=== PATIENT | female | born 1950 | race Caucasian/White ===

== ENCOUNTER 2019-01-04 08:34 | Day surgery (SDC) | payer MEDICARE, BC ==
[2019-01-04] VITALS (8 sets, daily range): BP systolic 150–186; BP diastolic 72–87
[~2019-01-04] VITALS: Ht 154.9 cm; Wt 76.2 kg
[2019-01-04] MEDS ORDERED: CHOL10002 PO (09:57)
[2019-01-04] MEDS ORDERED: LEVO137T2 PO (09:57)
[2019-01-04] MEDS ORDERED: LOSA25TA96 PO (09:57)
[2019-01-04] MEDS ORDERED: CITA40TA22 PO (09:57)
[2019-01-04] MEDS ORDERED: PANT-47 PO (09:57)
[2019-01-04] MEDS ORDERED: LIDOcaine 1% 30ml preserv. free vial IJ STA (10:28)
== END 2019-01-04 12:00 | disposition home or self-care (01) ==
LOC: SSTAY O 08:34
PROVIDERS: ATTEND Radiology Vascular & Interventional Radiology
DX: R59.0 Localized enlarged lymph nodes (principal); E03.9 Hypothyroidism, unspecified; I10 Essential (primary) hypertension; Z79.899 Other long term (current) drug therapy; Z90.710 Acquired absence of both cervix and uterus; Z98.49 Cataract extraction status, unspecified eye; Z85.850 Personal history of malignant neoplasm of thyroid; Z88.6 Allergy status to analgesic agent; F17.200 Nicotine dependence, unspecified, uncomplicated
CPT/HCPCS: 10005; 88184; 88185; J3490; 60100; 76942; 88173; 88305

== ENCOUNTER 2019-11-14 08:01 | Emergency (ER) | payer MEDICARE, BC ==
[~2019-11-14] VITALS: Ht 152.4 cm; Wt 80.2 kg
[~2019-11-14 08:01] MED LIST: CHOL10002 PO; CITA40TA22 PO; LEVO137T2 PO; LOSA25TA96 PO; PANT-47 PO
[2019-11-14] MEDS ORDERED: ondansetron 4mg rapidly disintigrating tab PO ONE (08:45)
[2019-11-14] MEDS ORDERED: morphine 4 MG/ML inj SYRINge IM ONE (08:45)
[2019-11-14] MEDS ORDERED: ONDA4TAB6 PO (09:48)
[2019-11-14] MEDS ORDERED: MORP15TA PO (09:48)
[2019-11-14 10:52] VITALS: BP 150/80
[2019-11-17] MEDS ORDERED: [UNRECOGNIZED DRUG - CODE] PO (16:34)
== END 2019-11-14 10:58 | disposition home or self-care (01) ==
LOC: ER 08:02
DX: S42.292A Other displaced fracture of upper end of left humerus, initial encounter for closed fracture (principal); R51 Headache; Z88.5 Allergy status to narcotic agent; Z79.899 Other long term (current) drug therapy; W18.49XA Other slipping, tripping and stumbling without falling, initial encounter; Y93.89 Activity, other specified; Y92.89 Other specified places as the place of occurrence of the external cause; Y99.9 Unspecified external cause status
CPT/HCPCS: 70450; 73060; 96372; 99284; J2270

== ENCOUNTER 2019-11-18 09:59 | Day surgery (SDC) | payer MEDICARE, BC ==
[~2019-11-18] VITALS: Ht 157.5 cm; Wt 75.8 kg
[2019-11-18] VITALS (8 sets, daily range): BP systolic 118–158; BP diastolic 73–87
[~2019-11-18 09:59] MED LIST changes: -CHOL10002 PO; +MESSAGE TO NURSING PO ONE; +[UNRECOGNIZED DRUG - CODE] PO; +cefazolin/dext.iso 2gm/100ml 100 ML IV ONE; +famotidine 10mg tablet PO ONE; +ringers solution, lacted 1,000 ML IV SCH; +vancomycin inj 1,500 MG in normal saline 300ml IV soln IV ONE
[2019-11-18] MEDS ORDERED: METO1TAB25 PO (10:51)
[2019-11-18] MEDS ORDERED: meperidine/PF 25mg/ml syringe ONE (11:45)
[2019-11-18 11:52] LABS: BASOPHILS # (AUTO) 0.1 X10'3 (0-0.2); EOSINOPHILS # (AUTO) 0.2 X10'3 (0-0.9); EOSINOPHILS % (AUTO) 2.6 % (0-6); LYMPHOCYTES # (AUTO) 1.7 X10'3 (1.1-4.8); LYMPHOCYTES % (AUTO) 19.2 % (21-51); MEAN CORPUSCULAR HEMOGLOBIN 30.8 PG (27.0-31.0); MEAN CORPUSCULAR HGB CONC 34.7 g/dL (33.0-36.5); MEAN CORPUSCULAR VOLUME 88.8 FL (78-98); MEAN PLATELET VOLUME 8.7 FL (7.4-10.4); MONOCYTES # (AUTO) 0.7 X10'3 (0-0.9); NEUTROPHILS # (AUTO) 6.2 X10'3 (1.8-7.7); NEUTROPHILS % (AUTO) 69.2 % (42-75); PRE OP HEMATOCRIT 38.2 % (35.0-45.0); PRE OP HEMOGLOBIN 13.2 g/dL (12.0-16.0); PRE OP PLATELET COUNT 253 X10'3 (140-440); RED CELL DISTRIBUTION WIDTH 13.5 % (11.5-14.5)
[2019-11-18 12:04] LABS: PRE OP PROTIME 10.8 SECONDS (9.0-12.0)
[2019-11-18 12:08] LABS: ALBUMIN 3.1 G/DL (3.4-5.0); ALBUMIN/GLOBULIN RATIO 0.8 (1.1-1.5); ALKALINE PHOSPHATASE 72 IU/L (46-116); BLOOD UREA NITROGEN 6 MG/DL (7-18); BUN/CREATININE RATIO 9.1 (6.6-38.0); CALCIUM 8.6 MG/DL (8.5-10.1); CHLORIDE 106 MMOL/L (99-107); CREATININE 0.66 MG/DL (0.40-0.90); PRE OP ALT 19 U/L (30-65); PRE OP ANION GAP 9 (8-16); PRE OP AST 18 U/L (10-37); PRE OP BILIRUB, TOTAL 0.8 MG/DL (0.0-1.0); PRE OP GLUCOSE 86 MG/DL (70-104); PRE OP SODIUM 140 MMOL/L (135-145); TOTAL CARBON DIOXIDE 24.6 MMOL/L (24-32); TOTAL PROTEIN 6.8 G/DL (6.4-8.2); eGFR 89 ML/MIN
[2019-11-18] MEDS ORDERED: BUPIVAcaine/PF 2.5 mg/ml (0.25%) 30ml vial ONE (12:08)
[2019-11-18] MEDS ORDERED: vancomycin 1,000mg inj ONE (12:08)
[2019-11-18] MEDS ORDERED: ondansetron/PF 4mg/2ml inj ONE (12:12)
[2019-11-18] MEDS ORDERED: sevoflurane 250ml liquid IH ONE (12:12)
[2019-11-18] MEDS ORDERED: fentaNYL/PF 50MCG/1 ML 2ML syringe ONE (12:17)
[2019-11-18] MEDS ORDERED: midazolam 2 mg/2 ml injection ONE (12:18)
[2019-11-18] MEDS ORDERED: propofol inj 20 ML IV ONE (12:20)
[2019-11-18 12:21] LABS: PRE OP POTASSIUM 3.2 MMOL/L (3.4-5.1)
[2019-11-18] MEDS ORDERED: ROPIVAcaine 0.5% (5mg/ml) 30ml vial ONE (12:21)
[2019-11-18] MEDS ORDERED: ePHEDrine 50MG/ML INJ. ONE (13:01)
[2019-11-18] MEDS ORDERED: morphine 4 MG/ML inj SYRINge IV PRN ×2 (13:20)
[2019-11-18] MEDS ORDERED: proCHLORperazine 10 MG/2 ml inj IV PRN (13:20)
[2019-11-18] MEDS ORDERED: ringers solution, lacted 1,000 ML IV SCH (13:20)
[2019-11-18] MEDS ORDERED: meperidine/PF 25mg/ml syringe IV PRN ×3 (13:20)
[2019-11-18] MEDS ORDERED: ondansetron/PF 4mg/2ml inj IV PRN (13:20)
[2019-11-18] MEDS ORDERED: dexamethasone sod phosphate 4mg/ml inj. ONE (13:39)
--- NOTE | 2019-11-18 14:14 | NUR ---
Received from OR via , accompanied by Anesthesiologist DR FITZGERALD and report given by Anesthesiolgist. AWAKENS TO VOICE. VITALS STABLE. DRESSING DI. ISAI PAIN. FINGERS WARM AND PINK. LUE IN SIMPLE SLING.
--- NOTE | 2019-11-18 15:34 | NUR ---
AWAKE AND ORIENTED. VITALS STABLE. DRESSING DI. ISAI PAIN. HOME WITH HER DAUGHTER AT THIS TIME.
== END 2019-11-18 15:34 | disposition home or self-care (01) ==
LOC: PRE-OP 09:59
PROVIDERS: ATTEND Orthopaedic Surgery
DX: S42.222A 2-part displaced fracture of surgical neck of left humerus, initial encounter for closed fracture (principal); I10 Essential (primary) hypertension; Z98.890 Other specified postprocedural states; Z88.5 Allergy status to narcotic agent; Z79.899 Other long term (current) drug therapy; Z79.82 Long term (current) use of aspirin; Z79.2 Long term (current) use of antibiotics; Z87.891 Personal history of nicotine dependence; Z72.89 Other problems related to lifestyle; Z82.3 Family history of stroke; Z80.9 Family history of malignant neoplasm, unspecified; W19.XXXA Unspecified fall, initial encounter; Y93.89 Activity, other specified; Y92.89 Other specified places as the place of occurrence of the external cause; Y99.8 Other external cause status; G89.18 Other acute postprocedural pain
CPT/HCPCS: 23615; 36415; 64415; 71045; 73030; 76000; 80053; 85025; 85610; 85730; 86885; 86900; 86901; 93005; C1713; J1100; J2175; J2250; J2405; J2704; J3010; J3370; J3490; J7120; A4618; A7000; J2795

== ENCOUNTER 2020-02-11 17:06 | Emergency (ER) | payer MEDICARE, BC ==
[~2020-02-11] VITALS: Ht 157.5 cm; Wt 72.7 kg
[~2020-02-11 17:06] MED LIST changes: -MESSAGE TO NURSING PO ONE; +METO1TAB25 PO; -cefazolin/dext.iso 2gm/100ml 100 ML IV ONE; -famotidine 10mg tablet PO ONE; -ringers solution, lacted 1,000 ML IV SCH; -vancomycin inj 1,500 MG in normal saline 300ml IV soln IV ONE
[2020-02-11] MEDS ORDERED: normal saline 1000ML IV soln IV ONE (17:50)
[2020-02-11 18:24] LABS: BASOPHILS # (AUTO) 0.1 X10'3 (0-0.2); BASOPHILS % (AUTO) 0.5 % (0-1); EOSINOPHILS # (AUTO) 0.4 X10'3 (0-0.9); EOSINOPHILS % (AUTO) 3.5 % (0-6); HEMATOCRIT 41.3 % (35.0-45.0); HEMOGLOBIN 13.5 g/dl (12.0-16.0); LYMPHOCYTES # (AUTO) 1.9 X10'3 (1.1-4.8); LYMPHOCYTES % (AUTO) 16.3 % (21-51); MEAN CORPUSCULAR HEMOGLOBIN 28.3 PG (27.0-31.0); MEAN CORPUSCULAR HGB CONC 32.6 g/dL (33.0-36.5); MEAN CORPUSCULAR VOLUME 86.8 FL (78-98); MEAN PLATELET VOLUME 8.5 FL (7.4-10.4); MONOCYTES # (AUTO) 0.6 X10'3 (0-0.9); MONOCYTES % (AUTO) 5.6 % (2-12); NEUTROPHILS # (AUTO) 8.5 X10'3 (1.8-7.7); NEUTROPHILS % (AUTO) 74.1 % (42-75); PLATELET COUNT 270 X10'3 (140-440); RED BLOOD COUNT 4.76 X10'6 (4.20-5.60); RED CELL DISTRIBUTION WIDTH 13.7 % (11.5-14.5); WHITE BLOOD COUNT 11.4 X10'3 (4.5-11.0)
[2020-02-11 18:36] LABS: ALANINE AMINOTRANSFERASE 12 U/L (12-78); ALBUMIN/GLOBULIN RATIO 0.8 (1.1-1.5); ALKALINE PHOSPHATASE 105 IU/L (46-116); ANION GAP 9 (8-16); ASPARTATE AMINO TRANSFERASE 24 U/L (10-37); BILIRUBIN,TOTAL 0.3 MG/DL (0.1-1.0); BLOOD UREA NITROGEN 10 MG/DL (7-18); BUN/CREATININE RATIO 11.4 (6.6-38.0); CALCIUM 8.7 MG/DL (8.5-10.1); CHLORIDE 107 MMOL/L (99-107); CREATININE 0.88 MG/DL (0.40-0.90); GLUCOSE 116 MG/DL (70-104); POTASSIUM 3.3 MMOL/L (3.5-5.1); SODIUM 142 MMOL/L (135-145); TOTAL CARBON DIOXIDE 25.7 MMOL/L (24-32); TOTAL PROTEIN 6.6 G/DL (6.4-8.2); eGFR 64 ML/MIN
[2020-02-11] MEDS ORDERED: sulfamethoxazole/trimethoprim DS (800/160mg) tablet PO STA (18:51)
[2020-02-11] MEDS ORDERED: cyclobenzaprine 10mg tablet PO ONE (18:55)
[2020-02-11] MEDS ORDERED: probenecid 500mg tablet PO ONE (18:55)
[2020-02-11 18:58] LABS: CLARITY,URINE CLEAR (Clear); COLOR,URINE YELLOW (Yellow); GLUCOSE, URINE NEGATIVE (Neg); KETONES,URINE NEGATIVE (Neg); LEUKOCYTE ESTERASE ,URINE NEGATIVE (Neg); NITRITES, URINE NEGATIVE (Neg); OCCULT BLOOD,URINE NEGATIVE (Neg); PROTEIN,URINE NEGATIVE (Neg)
[2020-02-11 18:59] LABS: UA COLLECTION TYPE CLN CATCH MIDSTREAM
[2020-02-11] MEDS ORDERED: ondansetron 4mg rapidly disintigrating tab PO ONE ×2 (19:10→19:35)
[2020-02-11] MEDS ORDERED: morphine 4 MG/ML inj SYRINge IM ONE (19:10)
[2020-02-11] MEDS ORDERED: potassium Cl 20 mEq SR tablet PO ONE (19:30)
--- NOTE | 2020-02-11 19:33 | NUR ---
The carpuject leaked the morphine out the back of the device. Wasted med with IZAIAH Arredondo. [employer] will not accept a waste/and obviously not returning it.
[2020-02-11] MEDS ORDERED: HYDROcodone/acetaminophen 5mg/325mg tablet PO ONE (19:35)
[2020-02-11] MEDS ORDERED: BACDS PO (19:45)
[2020-02-11] MEDS ORDERED: ampicill/sulbac 1.5gm/NS 100ml 100 ML IV SCH (20:00)
[2020-02-11 20:22] VITALS: BP 149/97
[2020-02-12] MEDS ORDERED: PRED20TA PO (14:30)
== END 2020-02-11 20:26 | disposition home or self-care (01) ==
LOC: ER 17:07
DX: L03.113 Cellulitis of right upper limb (principal); M79.642 Pain in left hand; Z88.5 Allergy status to narcotic agent; Z79.899 Other long term (current) drug therapy
CPT/HCPCS: 36415; 71045; 80053; 81003; 83605; 84145; 85025; 87040; 93005; 96365; 96372; 99285; J0295; J2270; J7030; 99284

== ENCOUNTER 2020-02-12 14:02 | Emergency (ER) | payer MEDICARE, BC ==
[~2020-02-12] VITALS: Ht 157.5 cm; Wt 77.0 kg
[~2020-02-12 14:02] MED LIST changes: +BACDS PO
[2020-02-12 14:09] VITALS: BP 164/77
[2020-02-12] MEDS ORDERED: triamcinolone acetonide 40mg/ml inj IM ONE (14:30)
[2020-02-12] MEDS ORDERED: PRED20TA PO (14:30)
== END 2020-02-12 15:05 | disposition home or self-care (01) ==
LOC: ER 14:03
DX: L25.8 Unspecified contact dermatitis due to other agents (principal); Z88.5 Allergy status to narcotic agent; Z79.899 Other long term (current) drug therapy
CPT/HCPCS: 96372; 99283; J3301

== ENCOUNTER 2020-03-29 20:27 | Emergency (ER) | payer MEDICARE, BC ==
[~2020-03-29] VITALS: Ht 157.5 cm; Wt 72.7 kg
[~2020-03-29 20:27] MED LIST changes: -BACDS PO
[2020-03-29 20:35] VITALS: BP 133/69
[2020-03-29] MEDS ORDERED: TETanus/Pertussis (Acell)/Diphther VAC/PF (Tdap-Adult) 0.5ml syringe IMVAC ONE (20:50)
[2020-03-29] MEDS ORDERED: AMOX-422 PO (21:01)
== END 2020-03-29 21:28 | disposition home or self-care (01) ==
LOC: ER 20:27
DX: S61.412A Laceration without foreign body of left hand, initial encounter (principal); M25.042 Hemarthrosis, left hand; W55.01XA Bitten by cat, initial encounter; Y93.89 Activity, other specified; Y92.89 Other specified places as the place of occurrence of the external cause; Y99.8 Other external cause status
CPT/HCPCS: 90471; 90715; 99283

== ENCOUNTER 2021-04-08 11:15 | Emergency (ER) | payer MEDICARE, BC ==
[~2021-04-08] VITALS: Ht 157.5 cm; Wt 72.7 kg
[2021-04-08] MEDS ORDERED: MECL-159 PO (12:50)
[2021-04-08] MEDS ORDERED: meclizine 12.5mg tablet PO ONE (12:55)
[2021-04-08] MEDS ORDERED: DIAZ5TAB22 PO (14:22)
[2021-04-08] MEDS ORDERED: diazepam 5mg tablet PO ONE (14:25)
[2021-04-08 14:34] VITALS: BP 143/79
== END 2021-04-08 14:50 | disposition home or self-care (01) ==
LOC: ER 11:16
DX: S09.90XA Unspecified injury of head, initial encounter (principal); F07.81 Postconcussional syndrome; Z88.5 Allergy status to narcotic agent; Z79.899 Other long term (current) drug therapy; W19.XXXA Unspecified fall, initial encounter; Y93.89 Activity, other specified; Y92.89 Other specified places as the place of occurrence of the external cause; Y99.8 Other external cause status
CPT/HCPCS: 70450; 93005; 99284; J8597